=== PATIENT | female | born 1935 | race Caucasian/White ===

== ENCOUNTER → 2016-11-10 | Outpatient (CLI) | payer OTHER ==
[~2016-11-10] MED LIST: AMLO-110 PO; CZR50 PO; DRV100 PO; IBUP-1050 PO
[2016-11-10 13:51] LABS: ALB/GLOB RATIO 0.8 (0.9-2); ALKALINE PHOSPHATASE 46 U/L (45-117); ALT/SGPT 22 U/L (12-78); BLOOD UREA NITROGEN 22 mg/dl (7-18); BUN/CREATININE RATIO 16.9 (10-20); CARBON DIOXIDE 29 mmol/L (21-32); CHLORIDE 100 mmol/L (98-107); CHOLESTEROL 201 mg/dl (0-200); CHOLESTEROL/HDL RATIO 3.7; GLUCOSE 100 mg/dl (70-99); HDL CHOLESTEROL 55 mg/dl; POTASSIUM 4.1 mmol/L (3.5-5.1); SODIUM 137 mmol/L (136-145)
[2016-11-10 14:01] LABS: AST/SGOT 20 U/L (15-37); LDL CHOLESTEROL CALCULATED 107 mg/dl; TRIGLYCERIDES 193 mg/dl (0-150); VERY LOW DENSITY LIPOPROT CALC 39 mg/dl
[2016-11-10 14:09] LABS: CALCIUM 9.5 mg/dl (8.5-10.1)
--- NOTE | 2016-11-15 14:14 | CODING QUERY MEDICAL NECESSITY ---
CQSUPPORTING DIAGNOSIS NEEDED A supporting diagnosis is required for the test/procedure performed on this patient in order for us to be reimbursed by the patient's insurance. Please provide a supporting diagnosis for the following test/procedure listed below next to the test name along with your signature. *If there is no additional diagnosis for this patient that would support the following test/procedure please document that below next to the test/procedure. Test(s)/Procedure(s) that require a supporting diagnosis: DOS 11/10/16 VITAMIN D TEST Provider Signature: Date: Thank you Deepti Kinsey Health Information Management Once completed, please kindly fax back to [phone] For questions please call [phone]
== END | disposition home or self-care (01) ==
LOC: C.LABPVFM 09:43
PROVIDERS: ATTEND Family Medicine
DX: R73.9 Hyperglycemia, unspecified (principal); Z78.0 Asymptomatic menopausal state; I10 Essential (primary) hypertension; N28.9 Disorder of kidney and ureter, unspecified; Z13.21 Encounter for screening for nutritional disorder; Z13.220 Encounter for screening for lipoid disorders

== ENCOUNTER → 2016-11-20 | Outpatient (CLI) | payer OTHER ==
[2016-11-23 16:46] LABS: ALBUMIN 4.2 G/DL (3.8-4.8); GAMMA GLOBULIN 1.6 G/DL (0.8-1.7); IMMUNOFIXATION IGA SERUM 316 MG/DL (81-463); IMMUNOFIXATION IGG SERUM 1904 MG/DL (694-1618); IMMUNOFIXATION IGM SERUM 70 MG/DL (48-271); TOTAL PROTEIN 7.9 G/DL (6.2-8.3)
== END | disposition home or self-care (01) ==
LOC: C.LABPVFM 09:08
PROVIDERS: ATTEND Family Medicine
DX: R77.1 Abnormality of globulin (principal)

== ENCOUNTER → 2016-12-14 | Outpatient (CLI) | payer OTHER ==
[2016-12-14 18:21] LABS: URINE PROTIEN/CREAT RATIO 0.1 (0-0.2)
[2016-12-14 18:26] LABS: URINE APPEARANCE CLEAR (CLEAR); URINE BILIRUBIN NEG (NEG); URINE COLOR YELLOW; URINE NITRITE NEG (NEG); URINE SPECIFIC GRAVITY 1.012 (1.000-1.030); UROBILINOGEN NEG (NEG); ZZUR CULT IF INDIC CLEAN CATCH NO
[2016-12-14 18:28] LABS: MANUAL MICROSCOPIC REQUIRED? NO; REVIEW REQ? NO
== END | disposition home or self-care (01) ==
LOC: C.LABPVFM 08:46
PROVIDERS: ATTEND Internal Medicine Nephrology
DX: N18.3 Chronic kidney disease, stage 3 (moderate) (principal)

== ENCOUNTER → 2017-02-28 | Outpatient (CLI) | payer OTHER ==
--- NOTE | 2017-02-28 14:03 | MAMMOGRAPHY REPORT ---
BILATERAL DIGITAL SCREENING MAMMOGRAM WITH CAD: 02/28/2017 CLINICAL HISTORY: Routine screening. Patient has no complaints. TECHNIQUE: Bilateral CC and MLO views were obtained. Current study was also evaluated with a Compute r Aided Detection (CAD) system. COMPARISON: Comparison is made to exams dated: 02/23/2016 mammogram, 02/17/2015 mammogram, 02/11/2014 m ammogram, 08/23/2013 mammogram, 02/14/2013 mammogram, and 02/09/2013 mammogram - [facility] enter. BREAST COMPOSITION: The tissue of both breasts is heterogeneously dense, which may obscure small mas ses. FINDINGS: There is a 5mm nodular asymmetry in the superior middle one third of the right breast on t he MLO view, and possible architectural distortion in the right upper outer quadrant, for which addit ional spot compression tomosynthesis views and possible ultrasound are recommended. There are scattered stable benign-appearing microcalcifications elsewhere in both breasts. No other s uspicious mass, architectural distortion or cluster of microcalcifications is seen. IMPRESSION: ACR BI-RADS CATEGORY 0: INCOMPLETE EVALUATION: NEED ADDITIONAL IMAGING EVALUATION The 5 mm nodular asymmetry and possible adjacent architectural distortion in the right upper outer br east needs additional evaluation. The patient will be called to schedule an appointment. Approximately 10% of breast cancers are not detected with mammography. A negative mammographic report should not delay biopsy if a clinically suggestive mass is present. Tonia Miller M.D. ay/:02/28/2017 11:38:45 Outside Machinist: Catrachita DONATO(R)(Alessia), [facility] letter sent: Addl Imaging 0 BI-RADS Code: ACR BI-RADS Category 0: Incomplete Evaluation: Need Additional Imaging Evaluation
== END | disposition home or self-care (01) ==
LOC: C.MAMM 11:01
PROVIDERS: ATTEND Family Medicine
DX: Z12.31 Encounter for screening mammogram for malignant neoplasm of breast (principal); R92.8 Other abnormal and inconclusive findings on diagnostic imaging of breast

== ENCOUNTER → 2017-03-07 | Outpatient (CLI) | payer OTHER ==
--- NOTE | 2017-03-07 12:29 | MAMMOGRAPHY REPORT ---
UNILATERAL RIGHT DIGITAL DIAGNOSTIC MAMMOGRAM TOMOSYNTHESIS AND TARGETED RIGHT ULTRASOUND: 03/07/2017 CLINICAL HISTORY: 81-year-old woman called back from screening mammography for a 5 mm nodular asymmet ry in the superior middle one third of the right breast on the MLO view, and possible associated arch itectural distortion in the right upper outer quadrant. TECHNIQUE: Spot compression right CC and MLO 2-D and tomosynthesis images were obtained. COMPARISON: Comparison is made to exams dated: 02/28/2017 mammogram, 02/23/2016 mammogram, 02/17/2015 m ammogram, 02/11/2014 mammogram, 08/23/2013 mammogram, and 02/14/2013 mammogram - [facility] enter. BREAST COMPOSITION: The tissue of the right breast is heterogeneously dense, which may obscure small masses. FINDINGS: There is persistence of a partially circumscribed, partially obscured 4.1 x 5.3 mm mass in the superior middle one third of the right breast on the spot compression MLO tomosynthesis images. This is not definitely identified on the spot compression CC views in the lateral or central breast. No definite persistent architectural distortion is identified on either the spot compression CC or MLO views. Further evaluation with ultrasound was performed. Targeted ultrasound was performed in the superior and lateral right breast. In the 12:00 axis, 2 cm from the nipple, there is an oval circumscribed mixed hypoechoic and anechoic solid versus cystic mas s measuring 3.8 x 2.8 x 3.3 mm. This may correlate with the nodular mammographic asymmetry and is in determinate. Definitive characterization with ultrasound guided cyst aspiration versus core biopsy i s recommended. Also, correlation with post procedure imaging is recommended. Throughout the remaind er of the superior and lateral right breast, there are 1-2 benign anechoic cysts in the 9:00 axis, 57 m from the nipple, the larger measuring 3.2 mm. No definite focal area of architectural distortion or suspicious solid mass is seen. IMPRESSION: ACR BI-RADS CATEGORY 4B: INTERMEDIATE SUSPICION FOR MALIGNANCY, TARGETED ULTRASOUND ACR BI-RADS CATEGORY 4B: INTERMEDIATE SUSPICION FOR MALIGNANCY 1. There is a circumscribed oval mixed hypoechoic and anechoic solid versus cystic mass in the 12:00 right breast, 2 cm from the nipple measuring 3.8 mm. This may correlate with the nodular mammograph ic asymmetry seen on the MLO view. Definitive characterization with ultrasound guided cyst aspiratio n versus core needle biopsy is recommended. 2. There is no definite persistent architectural distortion in the right upper outer quadrant with s upplemental spot compression tomosynthesis images. No suspicious sonographic correlate or architectu ral distortion is identified. However, pending benign pathology results in the 12:00 axis, a short i nterval follow-up right diagnostic mammogram including tomosynthesis images and possible repeat ultra sound is recommended to ensure stability in 6 months. These results and recommendations were discussed with the patient at the time of the exam. She tenta tively scheduled the right breast ultrasound guided cyst aspiration versus core biopsy prior to leavi ng our department. Approximately 10% of breast cancers are not detected with mammography. A negative mammographic report should not delay biopsy if a clinically suggestive mass is present. Tonia Miller M.D. ay/:03/07/2017 09:41:32 Shipping Clerk Crating: Ani DONATO(R)(M), [facility] letter sent: Abnormal 4/5 BI-RADS Code: ACR BI-RADS Category 4B: Intermediate Suspicion For Malignancy Ultrasound BI-RADS: ACR BI-RADS Category 4B: Intermediate Suspicion For Malignancy
== END | disposition home or self-care (01) ==
LOC: C.MAMM 08:36
PROVIDERS: ATTEND Family Medicine
DX: N63 Unspecified lump in breast (principal)

== ENCOUNTER → 2017-03-10 | Outpatient (CLI) | payer OTHER ==
--- NOTE | 2017-03-11 13:58 | MAMMOGRAPHY REPORT ---
ASPIRATION RIGHT BREAST: 03/10/2017 CLINICAL HISTORY: Right 12:00 breast mass. PATIENT CONSENT: The procedure and risks of ultrasound-guided cyst aspiration versus biopsy were disc ussed in full with the patient. Both oral and written consents were obtained. PROCEDURE DESCRIPTION: With ultrasound guidance, aseptic technique, and 1% lidocaine as a local anest hetic, the mass of concern in the right 12:00 was aspirated to completion. Benign type yellow fluid was obtained and discarded. Direct pressure was applied to the site immediately post procedure and h emostasis was achieved. The patient tolerated the procedure without complication. She was given wou nd care instructions. Post procedural unilateral mammograms were performed after the procedure; see separate dictation for details. COMPARISON: Comparison is made to exams dated: 03/07/2017 mammogram, 03/07/2017 ultrasound, 02/28/2017 ma mmogram, and 02/23/2016 mammogram - [facility]. IMPRESSION: ASPIRATION Successful ultrasound-guided aspiration of the right 12:00 breast mass. Benign type fluid was aspira victoria and discarded. Given that the mass completely aspirated, it is consistent with a benign cyst. A s recommended on the recent diagnostic report, recommend follow-up diagnostic tomosynthesis mammogram s and possible ultrasound of the right breast in 6 months. Kimberly Pruitt M.D. /:03/10/2017 14:26:53 Bicycle Mechanic: Kristan DONATO(Oral)(M), [facility]
--- NOTE | 2017-03-11 13:58 | MAMMOGRAPHY REPORT ---
UNILATERAL RIGHT DIGITAL DIAGNOSTIC MAMMOGRAM TOMOSYNTHESIS: 03/10/2017 CLINICAL HISTORY: Status post ultrasound guided aspiration of a right 12:00 breast mass. TECHNIQUE: Breast tomosynthesis in addition to standard 2D mammography was performed. Postprocedura l right MLO and cc tomosynthesis images including C views were obtained. COMPARISON: Comparison is made to exams dated: 03/07/2017 mammogram, 03/07/2017 ultrasound, 02/28/2017 ma mmogram, 02/23/2016 mammogram, 02/17/2015 mammogram, and 02/11/2014 mammogram - [facility] nter. BREAST COMPOSITION: The tissue of the right breast is heterogeneously dense, which may obscure small masses. FINDINGS: The previously seen nodular asymmetry in the right superior breast on the MLO view is no l onger evident status post aspiration of the right 12:00 breast mass, indicating probable good correla tion between the aspirated sonographic mass and the mammographic asymmetry. No significant postproce dural hematoma is seen. IMPRESSION: POST PROCEDURE IMAGING FOR MARKER PLACEMENT Good correlation between the aspirated right 12:00 breast cyst and the mammographic asymmetry. As re commended on the prior diagnostic report, recommend follow-up diagnostic tomosynthesis mammograms and possible ultrasound of the right breast in 6 months. Approximately 10% of breast cancers are not detected with mammography. A negative mammographic report should not delay biopsy if a clinically suggestive mass is present. Kimberly Pruitt M.D. ah/:03/10/2017 14:34:04 Area Field Manager: Kristan DONATO(R)(M), [facility] BI-RADS Code: Post Procedure Imaging For Marker Placement
== END | disposition home or self-care (01) ==
LOC: C.MAMM 13:28
PROVIDERS: ATTEND Family Medicine
DX: R92.8 Other abnormal and inconclusive findings on diagnostic imaging of breast (principal); N63 Unspecified lump in breast

== ENCOUNTER → 2017-04-08 | Outpatient (CLI) | payer OTHER ==
[2017-04-08 12:46] LABS: BASO % 0.4 %; BASO ABS # 0.02 K/uL (0-0.2); COMPLETE YES; EOS % 2.4 %; LYMPH % 32.2 %; MEAN CELL VOLUME 88.2 fL (80-100); MEAN CORPUSCULAR HEMOGLOBIN 29.6 pg (25-34); MEAN CORPUSCULAR HGB CONC 33.6 g/dl (32-36); MEAN PLATELET VOLUME 10.1 fL (7.4-10.4); MONO % 7.5 %; NEUT % 57.5 %; PLATELET COUNT 248 K/uL (130-400); RED BLOOD COUNT 4.42 M/uL (4.2-5.4); WHITE BLOOD COUNT 4.66 K/uL (4.8-10.8)
[2017-04-08 13:06] LABS: URINE PROTIEN/CREAT RATIO 0.1 (0-0.2); URINE TOTAL PROTEIN 10.9 mg/dl (0-11.9)
[2017-04-08 13:11] LABS: BLOOD UREA NITROGEN 30 mg/dl (7-18); BUN/CREATININE RATIO 21.1 (10-20); CALCIUM 9.5 mg/dl (8.5-10.1); CARBON DIOXIDE 32 mmol/L (21-32); CHLORIDE 100 mmol/L (98-107); GLUCOSE 97 mg/dl (70-99); MAGNESIUM 2.1 mg/dl (1.8-2.4); PHOSPHORUS 3.3 mg/dl (2.5-4.9); POTASSIUM 4.3 mmol/L (3.5-5.1); SODIUM 134 mmol/L (136-145)
[2017-04-08 13:38] LABS: URINE APPEARANCE CLEAR (CLEAR); URINE BILIRUBIN NEG (NEG); URINE COLOR YELLOW; URINE NITRITE NEG (NEG); URINE SPECIFIC GRAVITY 1.016 (1.000-1.030); UROBILINOGEN NEG (NEG)
[2017-04-08 13:51] LABS: REVIEW REQ? YES
[2017-04-08 13:52] LABS: MANUAL MICROSCOPIC REQUIRED? YES
[2017-04-08 14:05] LABS: ZZUR CULT IF INDIC CLEAN CATCH YES
== END | disposition home or self-care (01) ==
LOC: C.LABPVFM 10:44
PROVIDERS: ATTEND Internal Medicine Nephrology
DX: N18.3 Chronic kidney disease, stage 3 (moderate) (principal)

== ENCOUNTER → 2017-05-16 | Outpatient (CLI) | payer OTHER ==
[2017-05-16 14:15] LABS: ALT/SGPT 20 U/L (12-78); AST/SGOT 22 U/L (15-37); BLOOD UREA NITROGEN 25 mg/dl (7-18); BUN/CREATININE RATIO 21.4 (10-20); CALCIUM 9.2 mg/dl (8.5-10.1); CARBON DIOXIDE 28 mmol/L (21-32); CHLORIDE 102 mmol/L (98-107); CREATININE 1.16 mg/dl (0.60-1.20); GLUCOSE 103 mg/dl (70-99); SODIUM 138 mmol/L (136-145)
[2017-05-16 14:20] LABS: ALB/GLOB RATIO 0.8 (0.9-2); ALKALINE PHOSPHATASE 50 U/L (45-117); CHOLESTEROL 194 mg/dl (0-200); HDL CHOLESTEROL 49 mg/dl; LDL CHOLESTEROL CALCULATED 91 mg/dl; TRIGLYCERIDES 270 mg/dl (0-150); VERY LOW DENSITY LIPOPROT CALC 54 mg/dl
== END | disposition home or self-care (01) ==
LOC: C.LABPVFM 09:09
PROVIDERS: ATTEND Family Medicine
DX: I10 Essential (primary) hypertension (principal); N28.9 Disorder of kidney and ureter, unspecified; R77.1 Abnormality of globulin; R73.9 Hyperglycemia, unspecified; E78.5 Hyperlipidemia, unspecified

== ENCOUNTER → 2017-09-19 | Outpatient (CLI) | payer OTHER ==
[2017-09-19 17:10] LABS: BASO % 0.4 %; BASO ABS # 0.02 K/uL (0-0.2); EOS % 2.2 %; EOS ABS # 0.12 K/uL (0-0.5); HEMATOCRIT 40.5 % (37-47); HEMOGLOBIN 13.4 g/dL (12.0-16.0); IG# 0.02 K/uL (0.00-0.02); LYMPH % 27.1 %; LYMPH ABS # 1.51 K/uL (1.2-3.4); MEAN CELL VOLUME 87.9 fL (80-100); MEAN CORPUSCULAR HEMOGLOBIN 29.1 pg (25-34); MEAN CORPUSCULAR HGB CONC 33.1 g/dl (32-36); MEAN PLATELET VOLUME 10.2 fL (7.4-10.4); MONO % 11.8 %; MONO ABS # 0.66 K/uL (0.11-0.59); NEUT % 58.1 %; NEUT ABS # 3.24 K/uL (1.4-6.5); PLATELET COUNT 308 K/uL (130-400); RED CELL DISTRIBUTION WIDTH SD 41.6 fL (36.4-46.3); WHITE BLOOD COUNT 5.57 K/uL (4.8-10.8)
[2017-09-19 17:20] LABS: ALBUMIN 3.4 gm/dl (3.4-5.0); ALT/SGPT 22 U/L (12-78); BLOOD UREA NITROGEN 24 mg/dl (7-18); CALCIUM 9.5 mg/dl (8.5-10.1); CARBON DIOXIDE 30 mmol/L (21-32); GLUCOSE 95 mg/dl (70-99); SODIUM 135 mmol/L (136-145)
[2017-09-19 17:23] LABS: ALKALINE PHOSPHATASE 44 U/L (45-117); AST/SGOT 21 U/L (15-37); TOTAL PROTEIN 7.8 gm/dl (6.4-8.2)
== END | disposition home or self-care (01) ==
LOC: C.LABPVFM 11:20
PROVIDERS: ATTEND Internal Medicine Hematology & Oncology
DX: R79.89 Other specified abnormal findings of blood chemistry (principal)

== ENCOUNTER → 2017-09-22 | Outpatient (CLI) | payer OTHER ==
--- NOTE | 2017-09-23 14:42 | MAMMOGRAPHY REPORT ---
UNILATERAL RIGHT DIGITAL DIAGNOSTIC MAMMOGRAM TOMOSYNTHESIS WITH CAD AND TARGETED RIGHT ULTRASOUND: CLINICAL HISTORY: 81-year-old woman presents for follow-up in the right breast. She is 6 months stat us post benign ultrasound-guided cyst aspiration for a complicated cyst in the 12:00 right breast. A lso reevaluate a questionable area of architectural distortion in the right upper outer quadrant. Hi story of prior right breast excision. TECHNIQUE: Right CC and MLO 2-D and tomosynthesis images were obtained. Current study was also eval uated with a Computer Aided Detection (CAD) system. COMPARISON: Comparison is made to exams dated: 03/10/2017 aspiration, 03/10/2017 mammogram, 03/07/2017 m ammogram, 02/28/2017 mammogram, 02/23/2016 mammogram, and 02/17/2015 mammogram - [facility] enter. BREAST COMPOSITION: There are scattered areas of fibroglandular density in the right breast. FINDINGS: A linear scar marker overlies the upper outer middle one third of the right breast, denoti ng a skin surgical scar from prior surgery. This is in the area of questionable architectural distor tion described on the prior diagnostic mammogram reports, confirming it is likely postsurgical in lori ure. Additionally, the questionable area of distortion is less well-seen on the current exam. This confirms benignity. However, there is a newly visualized 5.8 mm nodular asymmetry in the lateral, mi ddle one third of the right breast on CC tomosynthesis slice 20/60. Another new nodular asymmetry is seen in the slightly inferior middle one third of the breast on the right MLO view (tomosynthesis sl ice 36/65) therefore, further evaluation with ultrasound was performed no other obvious masses, calci fications or areas of architectural distortion are identified. Targeted ultrasound was performed in the lateral right breast. In the 9:00 axis, 4 cm from the nippl e, 2 anechoic cysts are identified. The larger is located 1.5 cm deep to the dermis, oval and parall el in orientation. It measures 3.0 x 2.0 x 3.6 mm. This may possibly correlate with the nodular kevin mographic asymmetry but is slightly smaller than the mammographic measurements. Additional ultrasoun d was performed. There is a possible isoechoic solid mass versus normal fat lobule in the 7:00 right breast, 3 cm from the nipple, measuring 3.8 x 2.4 x 3.7 mm. This is also smaller than the nodular m ammographic asymmetry. No other discrete solid or cystic masses seen throughout the lateral right br east on ultrasound. IMPRESSION: ACR-BI-RADS CATEGORY 3: PROBABLY BENIGN, TARGETED ULTRASOUND ACR-BI-RADS CATEGORY 3: PRO BABLY BENIGN 1. The possible architectural distortion in the upper outer posterior right breast is less conspicuo us on the current exam, but a radiodense linear scar marker is now seen in the right upper outer quad rant, in the area of prior questionable distortion, confirming that this is postsurgical in nature. No further workup is needed at this time. 2. There are newly visualized nodular asymmetries in the lateral right breast on the CC view and sli ghtly inferior right breast on the MLO view. Possible cystic sonographic correlate in the 9:00 right breast on ultrasound. However another isoechoic possible mass versus fat lobule is identified in th e 7:00 right breast on ultrasound, measuring 3.8 mm. Although this has a benign appearance, given th e possible solid nature follow-up is recommended. Therefore, a short interval follow-up right diagno stic tomosynthesis mammogram and repeat targeted ultrasound in the 7:00 axis is recommended to ensure stability in 6 months. Annual left mammography will also be due at that time. These results and recommendations were discussed with the patient at the time of the exam. Approximately 10% of breast cancers are not detected with mammography. A negative mammographic report should not delay biopsy if a clinically suggestive mass is present. Tonia Miller M.D. ay/:09/22/2017 15:09:22 Head Of Transport Logistics: Kristan DONATO(Oral)(M), [facility] letter sent: Follow Up Recommended 3 BI-RADS Code: ACR-BI-RADS Category 3: Probably Benign Ultrasound BI-RADS: ACR-BI-RADS Category 3: Pr obably Benign
== END | disposition home or self-care (01) ==
LOC: C.MAMM 11:09
PROVIDERS: ATTEND Family Medicine
DX: R92.8 Other abnormal and inconclusive findings on diagnostic imaging of breast (principal); Z98.890 Other specified postprocedural states; N64.89 Other specified disorders of breast; Z91.040 Latex allergy status

== ENCOUNTER → 2018-03-02 | Outpatient (CLI) | payer OTHER ==
[~2018-03-02] MED LIST changes: -AMLO-110 PO; +AMLO5TAB3 PO
--- NOTE | 2018-03-02 14:56 | MAMMOGRAPHY REPORT ---
BILATERAL DIGITAL DIAGNOSTIC MAMMOGRAM TOMOSYNTHESIS WITH CAD AND TARGETED RIGHT ULTRASOUND: 03/02/2018 CLINICAL HISTORY: 6 Month Follow-up. TECHNIQUE: The study was acquired using full field digital technology and interpreted from soft copy. Breast tomosynthesis in addition to standard 2D mammography was performed. Current study was also ev aluated with a Computer Aided Detection (CAD) system. Bilateral CC and MLO 2D and tomosynthesis imag es were obtained. COMPARISON: Comparison is made to exams dated: 09/22/2017 mammogram, 03/10/2017 mammogram, 03/07/2017 ma mmogram, 02/28/2017 mammogram, 02/23/2016 mammogram, and 02/17/2015 mammogram - [facility] nter. BREAST COMPOSITION: The tissue of both breasts is heterogeneously dense, which may obscure small mass es. FINDINGS: There is an irregular nodular 5 mm asymmetry within the right breast on the MLO view along the traffic control operator ior nipple line. A clear correlate on the cc view is not seen. The previously described small nodul ar asymmetry seen within the right lateral breast middle depth on the cc view appears similar to prio r exams. A linear scar marker overlies the right upper outer breast. The remainder of both breasts are stable compared to prior exams, without suspicious masses, calcifications, or areas of architectu ral distortion seen. Scattered bilateral benign-appearing calcifications are not significantly sequeira ed. Targeted ultrasound was performed of the right breast in the region of the mammographic asymmetry. I n the right 7:00 breast, 3 cm from the nipple, there is an isoechoic non-circumscribed 4 x 3 x 4 mm m ass. This is not significantly changed compared to the September 2017 exam although may correspond wi th the mammographic asymmetry therefore is indeterminate for malignancy. Recommend ultrasound-guided core needle biopsy for further evaluation. A few small anechoic cysts were also seen, including a 3 mm benign cyst in the right 9:00 breast, 3 cm from the nipple, and a small 3 x 3 mm cyst in the righ t 8:00 breast, 3 cm from the nipple. IMPRESSION: ACR BI-RADS CATEGORY 4: SUSPICIOUS, ULTRASOUND ACR BI-RADS CATEGORY 4: SUSPICIOUS 1. Irregular 5 mm nodular asymmetry in the right breast on the MLO view. An isoechoic 4 mm mass is seen within the right 7:00 breast on ultrasound, which may correspond with the mammographic asymmetry . The mass is indeterminate and ultrasound-guided core needle biopsy is recommended for further eval uation, with post-clip mammography to assess for mammographicsonographic concordance. 2. No mammographic evidence of malignancy in the right breast. Recommend follow-up in 1 year. A phone call was made to the physician's office to confirm faxed results were received. The patient has been verbally notified of the results. She tentatively scheduled the biopsy before l eaving the department. Some breast cancers are not detected with mammography. A negative mammographic report should not olinda y biopsy if a clinically suggestive mass is present. Kimberly Pruitt M.D. ah/:03/02/2018 12:47:42 Salon Leader: RT Nina(Oral)(M), [facility]; Kimberly [facility] letter sent: Abnormal 4/5 OVERALL STUDY BIRADS: 4 Suspicious abnormality
== END | disposition home or self-care (01) ==
LOC: C.MAMM 10:37
PROVIDERS: ATTEND Family Medicine
DX: N64.89 Other specified disorders of breast (principal); N63.13 Unspecified lump in the right breast, lower outer quadrant

== ENCOUNTER → 2018-03-07 | Outpatient (CLI) | payer OTHER ==
--- NOTE | 2018-03-07 08:35 | Discharge Instructions ---
Discharge Instructions Procedure Procedure Date: Mar 07, 2018. Reason for visit: Right Mass. Discharge Discharge Date: Mar 07, 2018. Discharge Diagnosis: post right breast ultrasound guided core biopsy Medications Restart Stopped Medication(s): Resume Aspirin as per Primary Doctor's recommendations Instructions Activity Recommendations: Additional Limitations (see below) Return to School/Work: no limitations Recommended Home Diet: No Limitations Provider Instructions: ACTIVITY RECOMMENDATIONS: * No lifting, pushing, pulling or exercising the affected side for three days. RETURN TO SCHOOL/WORK: * You may return to work/school after the procedure, but do not perform any strenuous activities for 24 to 48 hours. MEDICATIONS: * Tylenol (two 325 mg) every four to six hours if needed for mild pain (if not allergic to Tylenol). DIET: * Resume previous diet. SPECIAL CARE INSTRUCTIONS: * Keep biopsy site dry for 24 hours. May shower after 24 hours, but do not soak (bathe) incision. May remove Tegaderm (plastic patch) 24 hours after procedure * Leave the steri-strips on for one week. Allow the steri-strips to fall off by themselves. If not off after one week, you may remove them. You may place a Bandaid crosswise over the strips, if desired. * Apply ice 10 minutes on and 10 minutes off as needed. * Wear a bra at bedtime to sleep more comfortably for 2-3 days. * Your referring physician should have the results after approximately 5 to 7 business days. * Call for unusual bleeding, fever, drainage, etc or if you have any questions call [phone] during normal business hours or after hours call Dr Miller, . FOLLOW UP VISIT: Follow-up with Referring Physician as scheduled. Allergies Coded Allergies: Sulfa Drugs (Verified Allergy, Severe, TROUBLE BREATHING, 09/05/09) Povidone (Verified Allergy, Mild, SKIN BURN, 09/05/09) Penicillins (Verified Allergy, Unknown, 09/05/09) PATIENT DOES NOT REMEMBER [facility] Recommendations: Call your doctor if: * Temperature above 101 degrees * Pain not relieved by pain medicine ordered * There is increased drainage or redness from any incision * You have any unanswered questions or concerns. Your Doctors Instructions noted above were prepared by provider Tonia Miller. Patient Signature Section: Patient Instructions Signature Page Haritha Jarrett Patient (or Guardian) Signature/Date: I have read and understand the instructions given to me by my caregivers. Caregiver/RN/Doctor Signature/Date: The above-named patient and/or guardian has received patient instructions on this date. + Original Patient Signature Page (only) stays with chart. Please make copy for patient.
--- NOTE | 2018-03-07 14:42 | MAMMOGRAPHY REPORT ---
ULTRASOUND GUIDED BIOPSY RIGHT BREAST: 03/07/2018 CLINICAL HISTORY: 82-year-old woman presents for ultrasound-guided core biopsy in the right breast at 7:00, for an isoechoic 4 mm mass identified on ultrasound. This may possibly correlate with an irreg ular 5 mm nodular asymmetry in the middle one third of the right breast along the posterior nipple li ne on the MLO view. COMPARISON: Prior mammograms dated 08/23/2013, 02/11/2014, 02/17/2015, 02/23/2016, 02/28/2017, 09/22/2017, 03/02/2018, ultrasounds dated 09/22/2017 and 03/02/2018. PATIENT CONSENT: The procedure, risks and benefits were discussed with the patient and informed conse nt was obtained both verbally and in writing. Specific risks to this procedure include: bleeding, in fection, puncture of adjacent structure, nontarget biopsy, sampling error, pain, metal allergy and me dication reaction. PROCEDURE DESCRIPTION: A time out was performed and the right breast was agreed as the site of biopsy . The skin was prepped and draped in the usual sterile fashion, using ChloraPrep instead of Betadine. The isoechoic 4 mm mass in the 7:00 right breast was chosen as the target for biopsy. Subcutaneous a nd intraparenchymal 1% buffered lidocaine, with and without epinephrine, was administered as local an esthesia. A skin incision was made. Through the incision, 5 samples were taken with a 14 gauge Achie ve biopsy device. A ribbon shaped metallic marker was placed at the biopsy site. Hemostasis was achie marely after manual compression. The patient tolerated the procedure well and there was no immediate com plication. The samples were sent to the pathology department in an appropriately labeled container. Postprocedure right CC and MLO tomosynthesis images were obtained. A new ribbon-shaped biopsy marker clip is seen in the 6:00 to 7:00 middle one third of the right breast. The 5 mm irregular nodular a symmetry is less well seen on the post procedure ML view and it is unclear if this definitively corre late. Further follow up recommendations will be made once pathology results are available. IMPRESSION: ULTRASOUND GUIDED BIOPSY 1. Status post ultrasound-guided core biopsy of a 4 mm isoechoic mass in the 7:00 right breast, with biopsy marker clip placed at this site. 2. It is unclear if the ribbon-shaped clip definitively aligns with the previously observed 5 mm irr egular nodular asymmetry in question on the right MLO view. Will await pathology results and make fu rther follow-up recommendations once the results are available, likely a six-month follow-up diagnost ic evaluation. 3. The patient will receive notification of the biopsy results from her referring physician. Tonia Miller M.D. ay/:03/07/2018 09:52:57 Plastics Process Hand: RT Мария(R)(M), [facility]
--- NOTE | 2018-03-07 14:45 | MAMMOGRAPHY REPORT ---
UNILATERAL RIGHT DIGITAL DIAGNOSTIC MAMMOGRAM TOMOSYNTHESIS: 03/07/2018 CLINICAL HISTORY: Status post ultrasound-guided core biopsy of an indeterminate 4.1 mm mass in the 7: 00 right breast. Please refer to the report from right breast ultrasound-guided core biopsy performed at the same time for full detail. IMPRESSION: POST PROCEDURE IMAGING FOR MARKER PLACEMENT Please refer to the report from right breast ultrasound-guided core biopsy performed at the same time for full detail. Some breast cancers are not detected with mammography. A negative mammographic report should not olinda y biopsy if a clinically suggestive mass is present. Tonia Miller M.D. ay/:03/07/2018 08:36:50 Manager Body: RT Мария(Oral)(M), [facility] BI-RADS Code: Post Procedure Imaging For Marker Placement
== END | disposition home or self-care (01) ==
LOC: C.MAMM 07:37
PROVIDERS: ATTEND Family Medicine
DX: N63.13 Unspecified lump in the right breast, lower outer quadrant (principal); N60.91 Unspecified benign mammary dysplasia of right breast